=== PATIENT | male | born 1955 | race Caucasian/White ===

== ENCOUNTER 2017-04-24 16:00 | Outpatient (CLI) | payer MEDICARE | END 2017-04-24 16:01 | LOC: LAB 16:00 | PROVIDERS: ATTEND Family Medicine | DX: G40.909 Epilepsy, unspecified, not intractable, without status epilepticus (principal) | CPT/HCPCS: 36415; 80188 ==

== ENCOUNTER 2018-05-31 10:11 | Outpatient (CLI) | payer MEDICARE, OTHER ==
[2018-05-31 10:31] LABS: eGFR (Non-African) > 60
[2018-05-31 11:05] LABS: MEAN CORPUSCULAR HEMOGLOBIN 30.5 pg (28.0-34.0)
[2018-05-31 11:06] LABS: BASOPHILS % 0.4 (0.0-1.5); EOSINOPHILS % 1.6 % (0.0-6.8); MONOCYTES % 5.7 % (0.0-11.0); NEUTROPHILS # 3.2 # k/uL (1.4-7.7)
== END 2018-05-31 10:12 ==
LOC: LABRHC 10:11
PROVIDERS: ATTEND Family Medicine
DX: G40.909 Epilepsy, unspecified, not intractable, without status epilepticus (principal); M25.551 Pain in right hip
CPT/HCPCS: 36415; 80053; 80188; 85025